=== PATIENT | male | born 1945 | race Caucasian/White ===

== ENCOUNTER → 2018-03-08 11:43 | Outpatient (CLI) | payer OTHER ==
[2018-03-08 12:09] LABS: BASOPHILS 0.6 % (0-2); EOSINOPHILS 4.5 % (0-7); HEMATOCRIT 45.6 % (42.0-54.0); HEMOGLOBIN 15.4 g/dL (13.5-17.5); LYMPHOCYTES 24.4 % (15-50); MCHC 33.8 g/dL (31.0-37.0); MCV 94.8 fL (80.0-100.0); MONOCYTES 10.5 % (2-11); PLATELET COUNT 254 10x3/uL (130-400); RBC 4.81 10x6/uL (4.20-6.10); WBC 4.8 10x3/uL (4.8-10.8)
[2018-03-08 12:23] LABS: INR 1.02 (0.85-1.17)
[2018-03-08 12:24] LABS: APTT 27.6 SECONDS (22.8-39.4)
[2018-03-08 12:26] LABS: CALC OSMOLALITY 280 mosm/kg (275-300); CALCIUM 9.4 mg/dL (8.5-10.1); CARBON DIOXIDE 31.5 mmol/L (21.0-32.0); CHLORIDE - SERUM 104 mmol/L (98-107); CREATININE - SERUM 0.8 mg/dL (0.6-1.3); GLUCOSE 100 mg/dL (74-106); SODIUM 140 mmol/L (136-145); UREA NITROGEN 17 mg/dL (7-18); eGFR NON AFRICAN AMERICAN > 90 mL/min (90-120)
== END | disposition home or self-care (01) ==
LOC: D.LABREF 11:43
PROVIDERS: Internal Medicine Cardiovascular Disease
DX: Z01.812 Encounter for preprocedural laboratory examination (principal)